=== PATIENT | female | born 1935 | race Two or more races ===

== ENCOUNTER 2017-11-08 13:28 | Inpatient (IN) | payer MEDICARE, OTHER ==
[~2017-11-08] VITALS: Ht 160 cm; Wt 70.5 kg
[2017-11-08 14:40] LABS: Basophils # (auto) 0 uL; Basophils % (auto) 0.2 % (0.0-2.0); Eosinophils # (auto) 0 uL; Hematocrit 32.7 % (36.0-46.0); Hemoglobin 10.4 g/dL (12.2-16.2); Lymphocytes # (auto) 1.6 uL; Lymphocytes % (auto) 8.7 % (10.0-50.0); Mean Corpuscular Hemoglobin 22.6 pg (28.0-32.0); Mean Corpuscular Hgb Conc. 31.7 g/dL (32.0-36.0); Mean Corpuscular Volume 71.4 fL (80.0-100.0); Monocytes # (auto) 0.9 uL; Monocytes % (auto) 4.8 % (0.0-12.0); Neutrophils # (auto) 15.8 uL; Neutrophils % (auto) 86.3 % (37.0-80.0); Platelet Count (auto) 292 10^3/uL (140-450); Red Blood Cells 4.58 10^6/uL (4.0-5.20); Red Cell Distribution Width 19.2 % (11.8-14.3); White Blood Cell 18.3 10^3/uL (4.4-10.8)
[2017-11-08] MEDS ORDERED: FUROSEMIDE 40 MG/4 ML VIAL IV ONE ×2 (15:15→16:15)
[2017-11-08] MEDS ORDERED: NITROGLYCERIN 0.4 MG SL TAB SL PRN (15:45)
[2017-11-08] MEDS ORDERED: MORPHINE SULF INJ 2 MG/ML SYRINGE 1ML IV PRN ×2 (15:45→16:00)
[2017-11-08 15:46] LABS: Potassium 4.9 mmol/L (3.5-5.1)
[2017-11-08 15:48] LABS: Bilirubin, Total 0.4 mg/dL (0.2-1.0); Calcium 8.3 mg/dL (8.5-10.1); Magnesium 2.3 mg/dL (1.6-2.6); Total Protein 7.5 g/dL (6.4-8.2)
[2017-11-08] MEDS ORDERED: TEMAZEPAM 15 MG CAP PO PRN (16:00)
[2017-11-08] MEDS ORDERED: PROMETHAZINE HCL 25 MG/ML 1ML IV PRN (16:00)
[2017-11-08] MEDS ORDERED: LACTULOSE 20Gm/30ML SOLN PO PRN (16:00)
[2017-11-08] MEDS ORDERED: HYDROcodone-ACET 5/325MG TAB PO PRN (16:00)
[2017-11-08] MEDS ORDERED: ALBUTEROL SULF 2.5 MG/0.5ML(0.5%) NEB SOLN NEB PRN (16:00)
[2017-11-08] MEDS ORDERED: ACETAMINOPHEN 500 MG TAB PO PRN (16:00)
[2017-11-08] MEDS ORDERED: LORazepam 0.5 MG TAB PO PRN (16:00)
[2017-11-08] MEDS ORDERED: DEXTROSE (50%) 50ML SYRG IV PRN (16:00)
[2017-11-08 16:06] VITALS: BP 137/94
[2017-11-08] MEDS ORDERED: ENALAPRIL MALEATE 2.5 MG TAB PO ONE (16:15)
[2017-11-08] MEDS ORDERED: LEVOFLOXACIN 500MG 100 ML IV ONE (16:15)
[2017-11-08] MEDS ORDERED: ASPirin 81 mg TAB PO ONE ×2 (16:15→16:30)
[2017-11-08] MEDS ORDERED: NITROGLYCERIN 0.2MG/HR TOPICAL PATCH TD ONE (16:15)
[2017-11-08] MEDS ORDERED: ENOXAPARIN SOD 40 MG/0.4 ML SYRINGE SC ONE (16:30)
[2017-11-08] MEDS ORDERED: PANTOPRAZOLE 40 MG TAB PO ONE (16:30)
[2017-11-08] MEDS ORDERED: CARVEDILOL 3.125 MG TAB PO ONE (16:30)
[2017-11-08] MEDS: InsuLIN REG 1unit/0.01ml Soln (100units/ml) SC SCH ×2 (16:47→22:00)
[2017-11-08] MEDS: ACCU-CHEK COMFORT CURVE STRIP VI SCH ×2 (16:47→22:27)
[2017-11-08 16:48] LABS: INR 0.93 (0.9-1.15)
[2017-11-08] MEDS: ATORVASTATIN 20 MG TAB PO ONE ×2 (17:01→17:12)
[2017-11-08] MEDS: CLOPIDOGREL BISULFATE 75 MG TAB PO ONE ×2 (17:01→17:13)
[2017-11-08] MEDS: IPRATROPIUM BROM 0.5 MG/2.5ML INH SOL NEB SCH (18:04)
[2017-11-08] MEDS: ALBUTEROL SULF 2.5 MG/0.5ML(0.5%) NEB SOLN NEB SCH (18:05)
[2017-11-08] MEDS ORDERED: ENOXAPARIN SOD 60 MG/0.6 ML SYRINGE SC ONE (20:00)
[2017-11-08] MEDS ORDERED: CLINDAMYCIN 600MG IV 50 ML IV SCH (22:00)
[2017-11-08] MEDS: CARVEDILOL 3.125 MG TAB PO SCH (22:25)
[2017-11-09] VITALS (7 sets, daily range): BP systolic 93–113; BP diastolic 46–67
[2017-11-09 05:44] LABS: Basophils # (auto) 0 uL; Basophils % (auto) 0.2 % (0.0-2.0); Eosinophils # (auto) 0 uL; Lymphocytes # (auto) 1.9 uL; Lymphocytes % (auto) 13.7 % (10.0-50.0); White Blood Cell 14.2 10^3/uL (4.4-10.8)
[2017-11-09 05:46] LABS: Eosinophils % (auto) 0.3 % (0.0-7.0); Hematocrit 28.2 % (36.0-46.0); Hemoglobin 9.5 g/dL (12.2-16.2); Mean Corpuscular Hemoglobin 23.7 pg (28.0-32.0); Mean Corpuscular Hgb Conc. 33.6 g/dL (32.0-36.0); Mean Corpuscular Volume 70.4 fL (80.0-100.0); Monocytes # (auto) 1.7 uL; Monocytes % (auto) 12.3 % (0.0-12.0); Neutrophils # (auto) 10.4 uL; Neutrophils % (auto) 73.5 % (37.0-80.0); Platelet Count (auto) 253 10^3/uL (140-450); Red Blood Cells 4.01 10^6/uL (4.0-5.20); Red Cell Distribution Width 18.7 % (11.8-14.3)
[2017-11-09 05:56] LABS: Albumin 2.5 g/dL (3.4-5.0); BUN/Creatinine Ratio 40.7; Bilirubin, Total 0.4 mg/dL (0.2-1.0); Total Protein 6.4 g/dL (6.4-8.2)
[2017-11-09] MEDS: IPRATROPIUM BROM 0.5 MG/2.5ML INH SOL NEB SCH ×4 (06:26→18:53)
[2017-11-09] MEDS: ALBUTEROL SULF 2.5 MG/0.5ML(0.5%) NEB SOLN NEB SCH ×4 (06:26→18:53)
[2017-11-09] MEDS: InsuLIN REG 1unit/0.01ml Soln (100units/ml) SC SCH ×4 (07:00→22:04)
[2017-11-09] MEDS: ACCU-CHEK COMFORT CURVE STRIP VI SCH ×4 (07:18→22:04)
[2017-11-09] MEDS: FUROSEMIDE 40 MG/4 ML VIAL IV SCH ×2 (10:00→15:52)
[2017-11-09] MEDS ORDERED: ENOXAPARIN SOD 40 MG/0.4 ML SYRINGE SC SCH (10:00)
[2017-11-09] MEDS: NITROGLYCERIN 0.2MG/HR TOPICAL PATCH TD SCH (10:00)
[2017-11-09] MEDS: CARVEDILOL 3.125 MG TAB PO SCH ×2 (10:00→21:42)
[2017-11-09] MEDS: ENALAPRIL MALEATE 2.5 MG TAB PO SCH (10:00)
[2017-11-09] MEDS ORDERED: LEVOFLOXACIN 500MG 100 ML IV SCH (10:00)
[2017-11-09] MEDS: ASPirin 81 mg TAB PO SCH (10:55)
[2017-11-09] MEDS: PANTOPRAZOLE 40 MG TAB PO SCH (10:55)
[2017-11-09] MEDS: ENOXAPARIN SOD 80 MG/0.8ML SYRINGE SC SCH ×2 (10:56→22:04)
[2017-11-09] MEDS ORDERED: MILRINONE 20MG/100ML 100 ML IV SCH (11:45)
[2017-11-09] MEDS ORDERED: MILRINONE 4 MG in SODIUM CHL 0.9% 50 ML IV ONE (11:45)
[2017-11-09] MEDS: MILRINONE IV ONE ×2 (12:00→12:42)
[2017-11-09] MEDS: SODIUM CHL 0.9% IV ONE ×2 (12:00→12:42)
[2017-11-09] MEDS ORDERED: SODIUM CHL 0.9% IV ONE (13:30)
[2017-11-09] MEDS ORDERED: MILRINONE IV ONE (13:30)
[2017-11-09] MEDS: MILRINONE 20MG/100ML 100 ML IV SCH (13:40)
[2017-11-09] MEDS ORDERED: LABETALOL HCL 5 MG/ML 4ML SYRINGE IV ONE (18:51)
[2017-11-09] MEDS ORDERED: LABETALOL HCL 5 MG/ML ML 20ML VIAL IV ONE (19:00)
[2017-11-09] MEDS ORDERED: LABETALOL HCL 5 MG/ML ML 20ML VIAL IV PRN (19:00)
[2017-11-09] MEDS: ATORVASTATIN 20 MG TAB PO SCH (22:04)
[2017-11-10] VITALS (19 sets, daily range): BP systolic 87–122; BP diastolic 40–65
[2017-11-10] MEDS: IPRATROPIUM BROM 0.5 MG/2.5ML INH SOL NEB SCH ×4 (00:15→19:17)
[2017-11-10] MEDS: ALBUTEROL SULF 2.5 MG/0.5ML(0.5%) NEB SOLN NEB SCH ×4 (00:15→19:17)
[2017-11-10] MEDS: MILRINONE 20MG/100ML 100 ML IV SCH ×2 (02:22→17:40)
[2017-11-10] MEDS: ACCU-CHEK COMFORT CURVE STRIP VI SCH ×4 (06:40→22:21)
[2017-11-10] MEDS: InsuLIN REG 1unit/0.01ml Soln (100units/ml) SC SCH ×4 (06:41→22:21)
[2017-11-10] MEDS: ENALAPRIL MALEATE 2.5 MG TAB PO SCH (10:00)
[2017-11-10] MEDS: NITROGLYCERIN 0.2MG/HR TOPICAL PATCH TD SCH (10:00)
[2017-11-10] MEDS: CARVEDILOL 3.125 MG TAB PO SCH ×2 (10:00→22:00)
[2017-11-10 10:10] LABS: Basophils # (auto) 0.1 uL; Basophils % (auto) 0.5 % (0.0-2.0); Eosinophils # (auto) 0.1 uL; Monocytes # (auto) 1.4 uL
[2017-11-10] MEDS: PANTOPRAZOLE 40 MG TAB PO SCH (10:11)
[2017-11-10] MEDS: ASPirin 81 mg TAB PO SCH (10:11)
[2017-11-10 10:12] LABS: Eosinophils % (auto) 0.7 % (0.0-7.0); Hematocrit 27.2 % (36.0-46.0); Hemoglobin 8.7 g/dL (12.2-16.2); Lymphocytes # (auto) 2.4 uL; Lymphocytes % (auto) 20.2 % (10.0-50.0); Mean Corpuscular Hemoglobin 22.6 pg (28.0-32.0); Mean Corpuscular Hgb Conc. 32.1 g/dL (32.0-36.0); Mean Corpuscular Volume 70.2 fL (80.0-100.0); Monocytes % (auto) 12.2 % (0.0-12.0); Neutrophils # (auto) 7.9 uL; Neutrophils % (auto) 66.4 % (37.0-80.0); Platelet Count (auto) 262 10^3/uL (140-450); Red Blood Cells 3.87 10^6/uL (4.0-5.20); Red Cell Distribution Width 18.8 % (11.8-14.3); White Blood Cell 11.8 10^3/uL (4.4-10.8)
[2017-11-10] MEDS: ENOXAPARIN SOD 80 MG/0.8ML SYRINGE SC SCH ×2 (10:12→22:21)
[2017-11-10 10:28] LABS: Albumin 2.3 g/dL (3.4-5.0); BUN/Creatinine Ratio 32.7; Bilirubin, Total 0.4 mg/dL (0.2-1.0); Calcium 7.5 mg/dL (8.5-10.1); Magnesium 2.2 mg/dL (1.6-2.6); Total Protein 5.9 g/dL (6.4-8.2)
[2017-11-10] MEDS: FUROSEMIDE 40 MG/4 ML VIAL IV SCH (11:55)
[2017-11-10] MEDS: ATORVASTATIN 20 MG TAB PO SCH (22:20)
[2017-11-11] VITALS (26 sets, daily range): BP systolic 88–140; BP diastolic 31–70
[2017-11-11] MEDS: IPRATROPIUM BROM 0.5 MG/2.5ML INH SOL NEB SCH ×4 (00:20→18:32)
[2017-11-11] MEDS: ALBUTEROL SULF 2.5 MG/0.5ML(0.5%) NEB SOLN NEB SCH ×4 (00:20→18:32)
[2017-11-11] MEDS: MILRINONE 20MG/100ML 100 ML IV SCH (03:46)
[2017-11-11 05:26] LABS: Basophils # (auto) 0.1 uL; Hemoglobin 9.3 g/dL (12.2-16.2); Lymphocytes # (auto) 2.4 uL; Monocytes # (auto) 1.6 uL
[2017-11-11 05:28] LABS: Basophils % (auto) 0.6 % (0.0-2.0); Eosinophils # (auto) 0.2 uL; Eosinophils % (auto) 1.7 % (0.0-7.0); Hematocrit 28.4 % (36.0-46.0); Lymphocytes % (auto) 22.5 % (10.0-50.0); Mean Corpuscular Hemoglobin 23.3 pg (28.0-32.0); Mean Corpuscular Hgb Conc. 32.9 g/dL (32.0-36.0); Mean Corpuscular Volume 70.7 fL (80.0-100.0); Monocytes % (auto) 15.1 % (0.0-12.0); Neutrophils # (auto) 6.3 uL; Neutrophils % (auto) 60.1 % (37.0-80.0); Nucleated Red Blood Cells % 0.1 %; Platelet Count (auto) 281 10^3/uL (140-450); Red Blood Cells 4.02 10^6/uL (4.0-5.20); Red Cell Distribution Width 18.5 % (11.8-14.3); White Blood Cell 10.5 10^3/uL (4.4-10.8)
[2017-11-11 05:50] LABS: Albumin 2.3 g/dL (3.4-5.0); BUN/Creatinine Ratio 30.6; Calcium 7.6 mg/dL (8.5-10.1); Potassium 3.9 mmol/L (3.5-5.1)
[2017-11-11 05:53] LABS: Bilirubin, Total 0.4 mg/dL (0.2-1.0)
[2017-11-11] MEDS: ACCU-CHEK COMFORT CURVE STRIP VI SCH ×4 (06:55→21:36)
[2017-11-11] MEDS: InsuLIN REG 1unit/0.01ml Soln (100units/ml) SC SCH ×4 (06:55→21:38)
[2017-11-11] MEDS ORDERED: LIDOCAINE 2%HCL (LOCAL ANESTH.) INJ 10ml MDV ONE (07:20)
[2017-11-11] MEDS ORDERED: IODIXANOL 320MG/ML 100ML BTL IV ONE (07:20)
[2017-11-11] MEDS ORDERED: HEPARIN IN NS 1000Units/500mL 0 ML ONE (07:20)
[2017-11-11] MEDS: CARVEDILOL 3.125 MG TAB PO SCH ×2 (09:30→21:36)
[2017-11-11] MEDS: NITROGLYCERIN 0.2MG/HR TOPICAL PATCH TD SCH (09:31)
[2017-11-11] MEDS: ENALAPRIL MALEATE 2.5 MG TAB PO SCH (09:31)
[2017-11-11] MEDS: FUROSEMIDE 40 MG/4 ML VIAL IV SCH (09:40)
[2017-11-11] MEDS: ASPirin 81 mg TAB PO SCH (09:40)
[2017-11-11] MEDS: PANTOPRAZOLE 40 MG TAB PO SCH (09:40)
[2017-11-11] MEDS: ENOXAPARIN SOD 80 MG/0.8ML SYRINGE SC SCH ×2 (09:40→21:36)
[2017-11-11] MEDS: ATORVASTATIN 20 MG TAB PO SCH (21:36)
[2017-11-12] VITALS (8 sets, daily range): BP systolic 91–122; BP diastolic 55–67
[2017-11-12] MEDS: IPRATROPIUM BROM 0.5 MG/2.5ML INH SOL NEB SCH ×4 (00:18→21:10)
[2017-11-12] MEDS: ALBUTEROL SULF 2.5 MG/0.5ML(0.5%) NEB SOLN NEB SCH ×4 (00:18→21:10)
[2017-11-12 05:46] LABS: Eosinophils # (auto) 0.3 uL; Lymphocytes # (auto) 2.4 uL; Red Blood Cells 4.06 10^6/uL (4.0-5.20)
[2017-11-12 05:48] LABS: Basophils # (auto) 0 uL; Basophils % (auto) 0.3 % (0.0-2.0); Eosinophils % (auto) 2.3 % (0.0-7.0); Hematocrit 28.9 % (36.0-46.0); Hemoglobin 9.4 g/dL (12.2-16.2); Lymphocytes % (auto) 21.2 % (10.0-50.0); Mean Corpuscular Hemoglobin 23.2 pg (28.0-32.0); Mean Corpuscular Hgb Conc. 32.7 g/dL (32.0-36.0); Mean Corpuscular Volume 71.1 fL (80.0-100.0); Monocytes # (auto) 1.6 uL; Neutrophils # (auto) 7.1 uL; Neutrophils % (auto) 62.2 % (37.0-80.0); Nucleated Red Blood Cells % 0.1 %; Platelet Count (auto) 309 10^3/uL (140-450); Red Cell Distribution Width 18.6 % (11.8-14.3); White Blood Cell 11.4 10^3/uL (4.4-10.8)
[2017-11-12 06:08] LABS: Albumin 2.4 g/dL (3.4-5.0); Bilirubin, Total 0.3 mg/dL (0.2-1.0); Calcium 7.5 mg/dL (8.5-10.1); Potassium 3.9 mmol/L (3.5-5.1); Total Protein 6.2 g/dL (6.4-8.2)
[2017-11-12] MEDS: InsuLIN REG 1unit/0.01ml Soln (100units/ml) SC SCH ×4 (07:22→21:52)
[2017-11-12] MEDS: ACCU-CHEK COMFORT CURVE STRIP VI SCH ×4 (07:22→21:11)
[2017-11-12] MEDS: FUROSEMIDE 40 MG/4 ML VIAL IV SCH (09:29)
[2017-11-12] MEDS: ASPirin 81 mg TAB PO SCH (09:30)
[2017-11-12] MEDS: PANTOPRAZOLE 40 MG TAB PO SCH (09:30)
[2017-11-12] MEDS: ENOXAPARIN SOD 80 MG/0.8ML SYRINGE SC SCH ×2 (09:31→21:11)
[2017-11-12] MEDS: ENALAPRIL MALEATE 2.5 MG TAB PO SCH (09:31)
[2017-11-12] MEDS: CARVEDILOL 3.125 MG TAB PO SCH ×2 (09:31→21:11)
[2017-11-12] MEDS: NITROGLYCERIN 0.2MG/HR TOPICAL PATCH TD SCH (10:00)
[2017-11-12] MEDS: ATORVASTATIN 20 MG TAB PO SCH (21:10)
[2017-11-13] VITALS: BP 110/63
[2017-11-13] MEDS: IPRATROPIUM BROM 0.5 MG/2.5ML INH SOL NEB SCH ×3 (00:31→11:22)
[2017-11-13] MEDS: ALBUTEROL SULF 2.5 MG/0.5ML(0.5%) NEB SOLN NEB SCH ×3 (00:31→11:22)
[2017-11-13] MEDS: ACCU-CHEK COMFORT CURVE STRIP VI SCH ×2 (04:44→11:26)
[2017-11-13 05:00] VITALS: BP 124/64
[2017-11-13] MEDS: InsuLIN REG 1unit/0.01ml Soln (100units/ml) SC SCH ×2 (06:32→11:28)
[2017-11-13 07:31] VITALS: BP 105/52
[2017-11-13] MEDS: FUROSEMIDE 40 MG/4 ML VIAL IV SCH (09:39)
[2017-11-13] MEDS: PANTOPRAZOLE 40 MG TAB PO SCH (09:40)
[2017-11-13] MEDS: ASPirin 81 mg TAB PO SCH (09:40)
[2017-11-13] MEDS: ENOXAPARIN SOD 80 MG/0.8ML SYRINGE SC SCH (09:41)
[2017-11-13] MEDS: NITROGLYCERIN 0.2MG/HR TOPICAL PATCH TD SCH (10:00)
[2017-11-13] MEDS: CARVEDILOL 3.125 MG TAB PO SCH ×2 (10:00→10:23)
[2017-11-13] MEDS: ENALAPRIL MALEATE 2.5 MG TAB PO SCH (10:23)
[2017-11-13 11:55] VITALS: BP 105/62
[2017-11-13 14:49] VITALS: BP 101/57
[2017-11-13 16:18] VITALS: BP 99/54
== END 2017-11-13 15:56 | disposition home or self-care (01) | DRG 871 ==
LOC: ER 13:33 → TELE 13:34 → DOU IN ICU 21:50 → TELE-EAST 11-13 03:43
PROVIDERS: ADMIT Internal Medicine; ATTEND Family Medicine
DX: A41.9 Sepsis, unspecified organism (principal); I21.4 Non-ST elevation (NSTEMI) myocardial infarction; J96.01 Acute respiratory failure with hypoxia; J18.9 Pneumonia, unspecified organism; R65.21 Severe sepsis with septic shock; I50.43 Acute on chronic combined systolic (congestive) and diastolic (congestive) heart failure; I69.354 Hemiplegia and hemiparesis following cerebral infarction affecting left non-dominant side; I11.0 Hypertensive heart disease with heart failure; D64.9 Anemia, unspecified; E78.5 Hyperlipidemia, unspecified; I25.10 Atherosclerotic heart disease of native coronary artery without angina pectoris; Z90.710 Acquired absence of both cervix and uterus; M54.5 Low back pain; Z88.0 Allergy status to penicillin; Z90.49 Acquired absence of other specified parts of digestive tract; Z98.49 Cataract extraction status, unspecified eye; Z79.899 Other long term (current) drug therapy; Z79.82 Long term (current) use of aspirin
CPT/HCPCS: 36415; 36600; 71045; 80053; 80061; 82550; 82805; 82962; 83036; 83735; 83880; 84443; 84484; 85025; 85379; 85610; 85652; 85730; 86141; 86850; 86900; 86901; 87040; 87081; 87086; 93005; 93306; 93971; 94640; 94761; 96372; 96374; 97116; 97163; 99291; A6257; J1815; J1956; J2001; J3490; Q9967

== ENCOUNTER 2017-11-14 16:37 | Emergency (ER) | payer MEDICARE, OTHER ==
[2017-11-14 16:37] VITALS: BP 0/0
[2017-11-14] MEDS ORDERED: MAGNESIUM SULF SDV 50% 4MEQ/ML-2 ML VIAL IV ONE (16:38)
[2017-11-14] MEDS ORDERED: CALCIUM CHLOR(10%) 100MG/ML 10ML SYRINGE IV ONE (16:38)
[2017-11-14] MEDS ORDERED: NALOXONE HCL 1MG/ML 2ML SYRINGE IV ONE (16:38)
[2017-11-14] MEDS ORDERED: EPINEPHrine HCL 1 MG/10 ML SYRG IV ONE (16:38)
[2017-11-14] MEDS ORDERED: SODIUM BICARBONATE 8.4% INJ 50ML SYRINGE IV ONE (16:38)
[2017-11-14] MEDS ORDERED: AMIODARONE HCL (50 MG/ ML) 3 ML VIAL IV ONE (16:38)
== END 2017-11-14 21:21 | disposition expired ==
LOC: EDUNIT# 16:37 → EDBD 16:37 → ER 16:37
DX: I46.9 Cardiac arrest, cause unspecified (principal); I11.0 Hypertensive heart disease with heart failure; I50.9 Heart failure, unspecified; E11.9 Type 2 diabetes mellitus without complications; E78.5 Hyperlipidemia, unspecified; I25.2 Old myocardial infarction; Z88.1 Allergy status to other antibiotic agents; Z88.5 Allergy status to narcotic agent; Z88.0 Allergy status to penicillin; Z88.8 Allergy status to other drugs, medicaments and biological substances; Z90.49 Acquired absence of other specified parts of digestive tract; Z90.710 Acquired absence of both cervix and uterus; Z86.73 Personal history of transient ischemic attack (TIA), and cerebral infarction without residual deficits
CPT/HCPCS: 31500; 92950; 99291; J0171; J0282; J2310; J3475